=== PATIENT | female | born 1995 | race African-American/Black ===

== ENCOUNTER 2017-01-22 07:33 | Emergency (ER) | payer SELFPAY ==
[2017-01-22 08:02] VITALS: BP 123/85
[2017-01-22] MEDS ORDERED: AMOX500C PO (08:08)
[2017-01-22] MEDS ORDERED: HYDR-971 PO (08:08)
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
== END 2017-01-22 08:21 | disposition home or self-care (01) ==
LOC: ER 07:33
DX: H66.91 Otitis media, unspecified, right ear (principal)
CPT/HCPCS: 99283

== ENCOUNTER 2017-04-04 10:26 | Emergency (ER) | payer OTHER ==
[~2017-04-04] VITALS: Ht 157.5 cm; Wt 46.3 kg
[~2017-04-04 10:26] MED LIST: AMOX500C PO; HYDR-971 PO
[2017-04-04 10:58] VITALS: BP 104/71
[2017-04-04] MEDS ORDERED: CYCL5TAB PO (11:44)
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
== END 2017-04-04 12:11 | disposition home or self-care (01) ==
LOC: ER 10:26
DX: S16.1XXA Strain of muscle, fascia and tendon at neck level, initial encounter (principal); S29.012A Strain of muscle and tendon of back wall of thorax, initial encounter; M54.5 Low back pain; S09.90XA Unspecified injury of head, initial encounter; V49.59XA Passenger injured in collision with other motor vehicles in traffic accident, initial encounter; Y93.89 Activity, other specified; Y99.8 Other external cause status; Y92.488 Other paved roadways as the place of occurrence of the external cause
CPT/HCPCS: 99283

== ENCOUNTER 2017-06-27 16:33 | Emergency (ER) | payer SELFPAY ==
[~2017-06-27] VITALS: Ht 154.9 cm; Wt 46.3 kg
[~2017-06-27 16:33] MED LIST changes: +CYCL5TAB PO
[2017-06-27 17:15] VITALS: BP 115/73
--- NOTE | 2017-06-27 17:19 | PHYS DOC ---
Past Medical History Past Medical History: No Pertinent History Past Surgical History: No Surgical History Alcohol Use: None Drug Use: None Adult General Chief Complaint Chief Complaint: SEXUALLY TRANSMITTED DISEASE [facility] HPI Patient is a 22 year old female presents to the emergency department stating that she is having lower abdominal pain and discomfort. She denies any vaginal discharge that is concern for sexual transmitted infections. Patient states that she has had some burning with urination. She has had unprotected sex with one partner. Patient denies at this time. Patient is here with her friend with concerns for STDs. Patient denies any nausea vomiting she denies any diarrhea. She denies any fever, chills Review of Systems Review of Systems Constitutional: Denies fever or chills [] Eyes: Denies change in visual acuity, redness, or eye pain [] HENT: Denies nasal congestion or sore throat [] Respiratory: Denies cough or shortness of breath [] Cardiovascular: No additional information not addressed in HPI [] GI: Lower abdominal pain, denies nausea, vomiting, bloody stools or diarrhea [] : dysuria denies hematuria [] Musculoskeletal: Denies back pain or joint pain [] Integument: Denies rash or skin lesions [] Neurologic: Denies headache, focal weakness or sensory changes [] Endocrine: Denies polyuria or polydipsia [] Allergies Allergies Allergies Coded Allergies Type Severity Reaction Last Updated Verified No Known Drug Allergies 01/02/16 No Physical Exam Physical Exam Constitutional: Well developed, well nourished, no acute distress, non-toxic appearance. [] HENT: Normocephalic, atraumatic, bilateral external ears normal, oropharynx moist, no oral exudates, nose normal. [] Eyes: PERRLA, EOMI, conjunctiva normal, no discharge. [] Neck: Normal range of motion, no tenderness, supple, no stridor. [] Cardiovascular:Heart rate regular rhythm, no murmur [] Lungs & Thorax: Bilateral breath sounds clear to auscultation [] Abdomen: Bowel sounds normal, soft, no tenderness, no masses, no pulsatile masses. [] Skin: Warm, dry, no erythema, no rash. [] Back: No tenderness Extremities: No tenderness, no cyanosis, no clubbing, ROM intact, no edema. [] Neurologic: Alert and oriented X 3, normal motor function, normal sensory function, no focal deficits noted. [] Psychologic: Affect normal, judgement normal, mood normal. [] Pelvic exam completed with RNCayla at bedside. Speculum exam with white discharge noted. Manual exam: no CMT tenderness no adnexal tenderness noted. Current Patient Data Vital Signs Vital Signs Date Time Temp Pulse Resp B/P (MAP) Pulse Ox O2 Delivery O2 Flow Rate FiO2 06/27/17 17:15 98.5 89 16 99 Room Air 98.5 Lab Values Laboratory Tests Test 06/27/17 17:19 06/27/17 17:20 POC Urine HCG, Qualitative Hcg negative (Negative) Urine Collection Type Unknown Urine Color Yellow Urine Clarity Clear Urine pH 7.0 Urine Specific [place] >=1.030 Urine Protein Negative mg/dL (NEG-TRACE) Urine Glucose (UA) Negative mg/dL (NEG) Urine Ketones (Stick) Negative mg/dL (NEG) Urine Blood Negative (NEG) Urine Nitrite Negative (NEG) Urine Bilirubin Negative (NEG) Urine Urobilinogen Dipstick 1.0 mg/dL (0.2 mg/dL) Urine Leukocyte Esterase Small (NEG) Urine RBC Occ /HPF (0-2) Urine WBC 11-20 /HPF (0-4) Urine Squamous Epithelial Cells Mod /LPF Urine Bacteria Few /HPF (0-FEW) Urine Mucus Marked /LPF Microbiology 06/27/17 Wet Prep - Final, Complete EKG EKG [] Radiology/Procedures Radiology/Procedures [] Course & Med Decision Making Course & Med Decision Making Pertinent Labs and Imaging studies reviewed. (See chart for details) Urinalysis is positive for small amount of leukocyte Estrace. Patient will be placed on Macrobid. Patient's wet prep was positive for bacterial vaginosis she' ll be placed on Flagyl at discharge. Patient was also treated for sexual transmitted instructions were she was provided with Rocephin, Flagyl and Zithromax. Patient will be discharged home with recommendations to drink plenty of fluids such as water and cranberry juice. Also recommended avoiding cranberry juice cocktail, carbonated beverages, citrus fruits, caffeine, and alcohol sees her considered irritants to the bladder. Also recommended safe sex practices such as using condoms or refrain from sexual intercourse. Patient will be discharged home in stable condition signs and symptoms to return back to emergency prior has been provided. All questions and concerns been answered of the patient's bedside. [] Dragon Disclaimer Dragon Disclaimer This electronic medical record was generated, in whole or in part, using a voice recognition dictation system. Departure Departure Impression: Primary Impression: Urinary tract infection Additional Impressions: Bacterial vaginosis Concern about sexually transmitted disease in female without diagnosis Disposition: 01 HOME, SELF-CARE Condition: STABLE Referrals: NO PCP (PCP) Patient Instructions: Bacterial Vaginosis, Msol-hp-Qefe, Sexually Transmitted Disease, Hsqq-xe-Siye, Urinary Tract Infection, Khnz-uu-Ieqe Additional Instructions: Your culture was positive for bacterial vaginosis. This is a change in the pH in her vaginal area. He'll be placed on Flagyl for this infection. Your urine was positive for urinary tract infection. Drink plenty of fluids such as water and cranberry juice. Avoid cranberry juice cocktail, carbonate beverages, citrus fruits, caffeine, and alcohol sees her considered irritants to the bladder. Your sexual transmitted infection cultures will take 2-3 days to obtain. You will be notified by phone if these are positive. Refrain from sexual intercourse for at least 2 weeks. If you're results are positive you'll need to refrain from sexual intercourse with a partner for the next 2 weeks as well. It is recommended that you use condoms whenever having sexual intercourse or refrain from sexual intercourse altogether. This will prevent sexually transmitted infections from being transferred. Follow-up the primary care physician in the next week. Return back to emergency prior signs symptoms of become worse. Scripts Metronidazole (FLAGYL) 500 Mg Tablet 1 TAB PO BID, #14 TAB Prov: SILVIA BRADY APRN 06/27/17 Nitrofurantoin Monohyd/M-Cryst (MACROBID 100 MG CAPSULE) 100 Mg Capsule 1 CAP PO BID, #14 CAP Prov: SILVIA BRADY APRN 06/27/17 Problem Qualifiers Primary Impression: Urinary tract infection Urinary tract infection type: site unspecified Hematuria presence: without hematuria Qualified Codes: N39.0 - Urinary tract infection, site not specified SILVIA BRADY APRN Jun 27, 2017 17:19
[2017-06-27 17:39] LABS: BILIRUBIN,URINE NEGATIVE (NEG); GLUCOSE,URINE NEGATIVE (NEG); NITRITE,URINE NEGATIVE (NEG); PROTEIN,URINE NEGATIVE (NEG-TRACE)
[2017-06-27 17:49] LABS: BACTERIA,URINE FEW /HPF (0-FEW); RBC,URINE OCC /HPF (0-2); SQUAMOUS EPITHELIAL CELL,UR MOD /LPF
[2017-06-27] MEDS ORDERED: METR500T PO (17:55)
[2017-06-27] MEDS ORDERED: NITR100C62 PO (17:55)
[2017-06-27] MEDS ORDERED: cefTRIAXone IM 250 MG VIAL IM ONE (18:00)
[2017-06-27] MEDS ORDERED: metroNIDAZOLE 500 MG TABLET PO ONE (18:00)
[2017-06-27] MEDS ORDERED: AZITHROMYCIN 250 MG TABLET. PO ONE (18:00)
--- NOTE | 2017-06-30 13:26 | VNOTE ---
CALL BACK NOTE CALL BACK Microbiology 06/27/17 Wet Prep - Final, Complete 06/27/17 Urine Culture - Preliminary, Resulted 06/27/17 Urine Culture Result 1 (NAYE) - Preliminary, Resulted Attempted to contact patient at [phone]. They have answered the phone have first and once I asked for the patient they have up. Call was returned with the message left for the patient to call in regards to positive gonorrhea and chlamydia results. Patient was treated here in the emergency department she just needs notification that her partners need to be treated as well as safe sex practices. SILVIA BRADY [employer] Jun 30, 2017 13:26
== END 2017-06-27 18:30 | disposition home or self-care (01) ==
LOC: ER 16:33
DX: N39.0 Urinary tract infection, site not specified (principal); N76.0 Acute vaginitis; Z11.3 Encounter for screening for infections with a predominantly sexual mode of transmission
CPT/HCPCS: 81001; 81025; 87086; 87491; 87591; 96372; 99284; J0696; Q0111; Q0144

== ENCOUNTER 2018-08-02 16:09 | Emergency (ER) | payer SELFPAY ==
[~2018-08-02] VITALS: Ht 154.9 cm; Wt 44.5 kg
[~2018-08-02 16:09] MED LIST changes: +METR500T PO; +NITR100C62 PO
[2018-08-02 17:15] VITALS: BP 95/68
--- NOTE | 2018-08-02 17:16 | PHYS DOC ---
Past Medical History Past Medical History: No Pertinent History Past Surgical History: No Surgical History Alcohol Use: None Drug Use: None Adult General Chief Complaint Chief Complaint: SEXUALLY TRANSMITTED DISEASE HPI HPI Patient is a 23 year old AA female who presents to the ER concerns of having sexually transmitted infection. Patient reports pelvic pain approximately 2 weeks ago. She denies any pelvic pain, back pain, or abdominal pain at this time. She also denies any increased urinary frequency, dysuria, irregular vaginal discharge, vaginal odor, or vaginal itching. She states she would like to be tested for STDs today. Review of Systems Review of Systems Constitutional: Denies fever or chills [] GI: Denies abdominal pain, nausea, vomiting, or diarrhea [] : Denies increased frequency, dysuria, or hematuria see history of present illness[] Musculoskeletal: Denies back pain Integument: Denies rash or skin lesions [] Neurologic: Denies headache, focal weakness or sensory changes [] All other systems were reviewed and found to be within normal limits, except as documented in this note. Allergies Allergies Allergies Coded Allergies Type Severity Reaction Last Updated Verified No Known Drug Allergies 01/02/16 No Physical Exam Physical Exam Constitutional: Well developed, well nourished, no acute distress, non-toxic appearance. [] HENT: Normocephalic, atraumatic, bilateral external ears normal, nose normal. [] Eyes: PERRLA, conjunctiva normal, no discharge. [] Pelvic Exam: Mesh Cutter present Michelle RN Abdomen: Nontender External Genitalia: Normal Skin Speculum: Normal vaginal mucosa, moderate amount of brown-green cervical discharge Bimanual: No adnexal masses or tenderness, No CMT Skin: Warm, dry, no erythema, no rash. [] Extremities: No cyanosis, no clubbing, ROM intact, no edema. [] Neurologic: Alert and oriented X 3, normal motor function, normal sensory function, no focal deficits noted. [] Psychologic: Affect normal, judgement normal, mood normal. [] Current Patient Data Vital Signs Vital Signs Date Time Temp Pulse Resp B/P (MAP) Pulse Ox O2 Delivery O2 Flow Rate FiO2 08/02/18 17:15 97.9 85 16 95/68 (77) 100 Room Air 97.9 Lab Values Laboratory Tests Test 08/02/18 17:19 Urine Collection Type Unknown Urine Color Yellow Urine Clarity Cloudy Urine pH 8.0 Urine Specific [place] >=1.030 Urine Protein 30 mg/dL (NEG-TRACE) Urine Glucose (UA) Negative mg/dL (NEG) Urine Ketones (Stick) Negative mg/dL (NEG) Urine Blood Moderate (NEG) Urine Nitrite Negative (NEG) Urine Bilirubin Negative (NEG) Urine Urobilinogen Dipstick 1.0 mg/dL (0.2 mg/dL) Urine Leukocyte Esterase Negative (NEG) Urine RBC 20-40 /HPF (0-2) Urine WBC Occ /HPF (0-4) Urine Squamous Epithelial Cells Few /LPF Urine Amorphous Sediment Present /HPF Urine Bacteria 0 /HPF (0-FEW) Urine Mucus Mod /LPF Microbiology 08/02/18 Wet Prep - Final, Complete EKG EKG [] Radiology/Procedures Radiology/Procedures [] Course & Med Decision Making Course & Med Decision Making Pertinent Labs and Imaging studies reviewed. (See chart for details) dx: Suspected sexually transmitted infection, bacterial vaginosis, Patient was treated prophylactically with 250 mg of IM Rocephin, and 1 g of PO Zithromax. Patient was instructed to avoid having intercourse until the results of gonorrhea and chlamydia testing were available, patient was notified that these results would not be available for 48 hours. If one or both of these tests is positive, patient needs to refrain from intercourse for approximately 2 weeks following the treatment of any current partners. Patient verbalized an understanding of home care, medications, follow-up, and return to ED instructions and was in agreement with the plan of care. [] Dragon Disclaimer Dragon Disclaimer This electronic medical record was generated, in whole or in part, using a voice recognition dictation system. Departure Departure Impression: Primary Impression: Contact with and (suspected) exposure to infections with a predominantly sexual mode of transmission Additional Impression: Bacterial vaginosis Disposition: HOME, SELF-CARE Condition: STABLE Referrals: NO PCP (PCP) Patient Instructions: Bacterial Vaginosis, Frkq-ox-Hwat, Sexually Transmitted Disease, [id number]-[id number] Additional Instructions: You were treated with for a suspected sexually transmitted disease. Avoid having intercourse until the results of gonorrhea and chlamydia testing are available, these results will not be available for 48 hours. If one or both of these tests is positive, you needs to refrain from intercourse for approximately 2 weeks following the treatment of any current partners. Follow- up with your primary care doctor symptoms persist. Return to the ER symptoms worsen. Scripts Metronidazole (FLAGYL) 500 Mg Tablet 1 TAB PO BID, #14 TAB Prov: JACKY DICKSON APRN 08/02/18 Problem Qualifiers JACKY DICKSON APRN Aug 02, 2018 17:16
[2018-08-02 17:35] LABS: BILIRUBIN,URINE NEGATIVE (NEG); CLARITY,URINE CLOUDY; COLOR,URINE YELLOW; NITRITE,URINE NEGATIVE (NEG); PROTEIN,URINE 30 mg/dL (NEG-TRACE)
[2018-08-02 17:45] LABS: AMORPHOUS SEDIMENT,UR PRESENT /HPF; BACTERIA,URINE 0 /HPF (0-FEW); RBC,URINE 20-40 /HPF (0-2); SQUAMOUS EPITHELIAL CELL,UR FEW /LPF; WBC,URINE OCC /HPF (0-4)
[2018-08-02] MEDS ORDERED: METR500T PO (17:56)
[2018-08-04 14:24] LABS: GC PROBE Positive (Negative)
--- NOTE | 2018-08-07 17:10 | VNOTE ---
CALL BACK NOTE CALL BACK Microbiology 08/02/18 Wet Prep - Final, Complete Positive for gonorrhea and not treated, spoke to patient, she'll come tomorrow for treatment. MORELIA CORREA APRN Aug 07, 2018 17:10 MARJORIE STEINBERG MD Aug 07, 2018 17:52
== END 2018-08-02 18:04 | disposition home or self-care (01) ==
LOC: ER 16:09
DX: N76.0 Acute vaginitis (principal); B96.89 Other specified bacterial agents as the cause of diseases classified elsewhere; Z20.2 Contact with and (suspected) exposure to infections with a predominantly sexual mode of transmission
CPT/HCPCS: 81001; 99284; Q0111; 87491; 87591

== ENCOUNTER 2018-08-08 15:17 | Emergency (ER) | payer SELFPAY ==
[~2018-08-08] VITALS: Ht 154.9 cm; Wt 44.5 kg
[2018-08-08 15:45] VITALS: BP 137/71
[2018-08-08] MEDS ORDERED: AZITHROMYCIN 250 MG TABLET. PO ONE (15:45)
[2018-08-08] MEDS ORDERED: cefTRIAXone IM 250 MG VIAL IM ONE (15:45)
--- NOTE | 2018-08-08 16:00 | PHYS DOC ---
Past Medical History Past Medical History: No Pertinent History Past Surgical History: No Surgical History Alcohol Use: None Drug Use: None Adult General Chief Complaint Chief Complaint: SEXUALLY TRANSMITTED DISEASE HPI HPI Patient is a 23 year old female who presents for STD treatment. Patient received a call from me yesterday, she was positive for gonorrhea. Review of Systems Review of Systems Constitutional: Denies fever or chills [] GI: Request for STD treatment. Denies abdominal pain, nausea, vomiting, bloody stools or diarrhea [] : Denies dysuria or hematuria [] Musculoskeletal: Denies back pain or joint pain [] Integument: Denies rash or skin lesions [] Neurologic: Denies headache, focal weakness or sensory changes [] All other systems were reviewed and found to be within normal limits, except as documented in this note. Current Medications Current Medications Current Medications Medications (Trade) Dose Ordered Sig/Quinton Start Time Stop Time Status Last Admin Dose Admin Azithromycin (Zithromax) 1,000 mg 1X ONCE 08/08/18 15:45 08/08/18 15:46 DC Ceftriaxone Sodium (Rocephin Im) 250 mg 1X ONCE 08/08/18 15:45 08/08/18 15:46 DC Allergies Allergies Allergies Coded Allergies Type Severity Reaction Last Updated Verified No Known Drug Allergies 01/02/16 No Physical Exam Physical Exam Constitutional: Well developed, well nourished, no acute distress, non-toxic appearance. [] HENT: Normocephalic, atraumatic, bilateral external ears normal, oropharynx moist, no oral exudates, nose normal. [] Eyes: PERRLA, EOMI, conjunctiva normal, no discharge. [] Neck: Normal range of motion, no tenderness, supple, no stridor. [] Cardiovascular:Heart rate regular rhythm, no murmur [] Lungs & Thorax: Bilateral breath sounds clear to auscultation [] Abdomen: Bowel sounds normal, soft, no tenderness, no masses, no pulsatile masses. [] Skin: Warm, dry, no erythema, no rash. [] Back: No tenderness, no CVA tenderness. [] Extremities: No tenderness, no cyanosis, no clubbing, ROM intact, no edema. [] Neurologic: Alert and oriented X 3, normal motor function, normal sensory function, no focal deficits noted. [] Psychologic: Affect normal, judgement normal, mood normal. [] EKG EKG [] Radiology/Procedures Radiology/Procedures [] Course & Med Decision Making Course & Med Decision Making Pertinent Labs and Imaging studies reviewed. (See chart for details) This is a 23-year-old female patient presenting to the ED today with STD treatment, patient was positive for gonorrhea couple days ago. Was given Rocephin and azithromycin in the ED. Discharged with instructions to follow-up with PCP or the health department as needed. STD education provided. Sandra Disclaimer Dragon Disclaimer This electronic medical record was generated, in whole or in part, using a voice recognition dictation system. Departure Departure Impression: Primary Impression: Sexually transmitted disease (STD) Disposition: HOME, SELF-CARE Condition: STABLE Referrals: NO PCP (PCP) follow up with your doctor as needed Patient Instructions: Sexually Transmitted Disease, [id number] Additional Instructions: You were positive for gonorrhea, this is a sexually transmitted disease. You were treated. Do not have sex for 7 days. Use protection at all times. Follow- up with your own primary care doctor or the health department as needed. Contact all your sex partners, let them know you were treated for STDs in the emergency and ask them to seek treatment too. MORELIA CORREA APRN Aug 08, 2018 16:00
== END 2018-08-08 16:49 | disposition home or self-care (01) ==
LOC: ER 15:17
DX: Z11.3 Encounter for screening for infections with a predominantly sexual mode of transmission (principal)
CPT/HCPCS: 96372; 99283; J0696; Q0144

== ENCOUNTER 2021-04-11 19:50 | Emergency (ER) | payer SELFPAY ==
[~2021-04-11] VITALS: Ht 160 cm; Wt 41.0 kg
[~2021-04-11 19:50] MED LIST changes: +HYDR-3164 PO; -HYDR-971 PO
--- NOTE | 2021-04-11 21:05 | PHYS DOC ---
Past Medical History Past Medical History: No Pertinent History Past Surgical History: No Surgical History Smoking Status: Never Smoker Alcohol Use: None Drug Use: None General Adult EDM: Chief Complaint: HAND PROBLEM HPI: HPI: Patient is a 25 year old right-handed female who presents to the ED today complaining of mild pain to the right hand after a box fell on it yesterday. She states the box was heavy but not able to figure out how much it weighed. Patient states the pain is worse on touching the dorsal aspect of her right hand. Patient states immobilization has been relieving the pain. She is currently using the right hand texting Review of Systems: Review of Systems: Constitutional: Denies fever or chills. [] Musculoskeletal: Reports right hand pain Integument: Denies rash. [] Neurologic: Denies headache, focal weakness or sensory changes. [] Psychiatric: Denies depression or anxiety. [] Heart Score: C/O Chest Pain: N/A Risk Factors: Risk Factors: DM, Current or recent (<one month) smoker, HTN, HLP, family history of CAD, obesity. Risk Scores: Score 0 - 3: 2.5% MACE over next 6 weeks - Discharge Home Score 4 - 6: 20.3% MACE over next 6 weeks - Admit for Clinical Observation Score 7 - 10: 72.7% MACE over next 6 weeks - Early Invasive Strategies Allergies: Allergies: Allergies Coded Allergies Type Severity Reaction Last Updated Verified No Known Drug Allergies 01/02/16 No Physical Exam: PE: Constitutional: Well developed, well nourished, no acute distress, non-toxic jared earance. [] Skin: Warm, dry, no erythema, no rash. [] Back: No tenderness, no CVA tenderness. [] Extremities: Right hand with no deformity. Tenderness on palpation of the proximal end of the right fourth metacarpal. Full range of motion to the right hand and fingers. Adequate radial, medial, ulnar sensation to the right hand. +2 right radial pulse. Cap refill less than 2 seconds to right fingers Neurologic: Alert and oriented X 3, normal motor function, normal sensory function, no focal deficits noted. [] Psychologic: Affect normal, judgement normal, mood normal. [] Current Patient Data: Labs: Laboratory Tests Test 04/11/21 20:31 POC Urine HCG, Qualitative Hcg negative (Negative) EKG: EKG: [] Radiology/Procedures: Radiology/Procedures: [] Course & Med Decision Making: Course & Med Decision Making Pertinent Labs and Imaging studies reviewed. (See chart for details) This 25-year-old female patient presenting to the ED today with right hand pain after a box fell on it yesterday. Right hand x-rays interpreted by radiologist are negative for any acute findings. Discharge to home. Ice elevation encouraged. OTC pain relievers. Follow-up with Ortho as needed Dragon Disclaimer: Dragon Disclaimer: This electronic medical record was generated, in whole or in part, using a voice recognition dictation system. Departure Departure Impression: Primary Impression: Contusion of right hand Qualified Codes: S60.221A - Contusion of right hand, initial encounter Disposition: HOME / SELF CARE / HOMELESS Condition: STABLE Referrals: NO PCP (PCP) HANNAH SHAFER MD follow up in one week Patient Instructions: Contusion, [id number] Additional Instructions: You were seen for right hand injury, your right hand x-rays are negative for any acute findings, try to ice and elevate the extremity. You can take [id number] Tylenol or Motrin for pain. Please follow-up with the provided orthopedic doctor or your own doctor in 1 week if pain persists MORELIA CORREA APRN Apr 11, 2021 21:05
[2021-04-11 21:15] VITALS: BP 109/63
--- NOTE | 2021-04-12 00:51 | RAD ---
Right hand 3 views. HISTORY: Pain, box fell on hand 3 views were taken of the right hand. There is not evidence of an acute fracture or osseous abnormali ty. IMPRESSION: 1. No fracture or acute osseous abnormality noted in the right hand. Electronically signed by: Bruce Marie MD (04/12/2021 12:48 AM) [facility]
== END 2021-04-11 22:15 | disposition home or self-care (01) ==
LOC: ER 19:50
DX: S60.221A Contusion of right hand, initial encounter (principal); W20.8XXA Other cause of strike by thrown, projected or falling object, initial encounter; Y93.89 Activity, other specified; Y92.89 Other specified places as the place of occurrence of the external cause; Y99.8 Other external cause status
CPT/HCPCS: 73130; 81025; 99283